=== PATIENT | male | born 1955 | race Caucasian/White ===

== ENCOUNTER 2017-03-15 19:43 | Emergency (ER) | payer OTHER ==
[~2017-03-15] VITALS: Ht 185.4 cm; Wt 108.9 kg
[~2017-03-15 19:43] MED LIST: ADALAT10 MG PO; ATORVASTATIN CA40 M1 PO; BACTRIM DS 8001 TA1 PO; BAYER ASPIRIN C81 MG PO; BENADRYL50 MG PO; CEPHALEXIN500 M1 PO; CLINDAMYCIN150 MG PO; COZAAR50 M1 PO; CRESTOR10 MG PO; DOXYCYCLINE100 M2 PO; EPA-CON500 MG PO; KEFLEX500 MG PO; Lopressor25 MG PO; NEXIUM20 MG PO; PLAVIX75 MG PO; PREDNICOT20 MG PO; VITAMIN D-32000 UNI1 PO
[2017-03-15] MEDS ORDERED: BENADRYL ALLERG25 M5 PO (22:16)
[2017-03-15] MEDS ORDERED: ZANTAC 150150 MG PO (22:16)
[2017-03-15] MEDS ORDERED: MEDROL DOSEPAK4 MG PO (22:16)
== END 2017-03-15 22:20 | disposition home or self-care (01) ==
LOC: ED 19:43
DX: T63.441A Toxic effect of venom of bees, accidental (unintentional), initial encounter (principal); F17.200 Nicotine dependence, unspecified, uncomplicated; Y92.9 Unspecified place or not applicable; Z79.82 Long term (current) use of aspirin; Z79.899 Other long term (current) drug therapy

== ENCOUNTER 2018-01-11 18:17 | Emergency (ER) | payer OTHER ==
[~2018-01-11] VITALS: Ht 185.4 cm; Wt 113.4 kg
[~2018-01-11 18:17] MED LIST changes: +BENADRYL ALLERG25 M5 PO; +MEDROL DOSEPAK4 MG PO; +ZANTAC 150150 MG PO
[2018-01-11] MEDS ORDERED: PANTOPRAZOLE SO20 MG PO (18:27)
[2018-01-11] MEDS ORDERED: CEPHALEXIN500 M1 PO (18:34)
== END 2018-01-11 21:25 | disposition home or self-care (01) ==
LOC: ED 18:17
DX: L03.116 Cellulitis of left lower limb (principal); Z98.890 Other specified postprocedural states; Z96.651 Presence of right artificial knee joint; Z79.899 Other long term (current) drug therapy; Z79.82 Long term (current) use of aspirin; Z91.030 Bee allergy status

== ENCOUNTER 2018-09-03 19:14 | Emergency (ER) | payer OTHER ==
[~2018-09-03] VITALS: Ht 187.9 cm; Wt 112.5 kg
[~2018-09-03 19:14] MED LIST changes: +PANTOPRAZOLE SO20 MG PO
[2018-09-03] MEDS ORDERED: SEPTDS PO (20:51)
== END 2018-09-03 20:38 | disposition home or self-care (01) ==
LOC: ED 19:14
DX: L03.116 Cellulitis of left lower limb (principal); I73.9 Peripheral vascular disease, unspecified; I10 Essential (primary) hypertension; F17.200 Nicotine dependence, unspecified, uncomplicated; Z91.030 Bee allergy status; Z79.2 Long term (current) use of antibiotics; Z79.82 Long term (current) use of aspirin; Z79.899 Other long term (current) drug therapy

== ENCOUNTER 2019-08-20 18:40 | Emergency (ER) | payer OTHER ==
[~2019-08-20] VITALS: Ht 185.4 cm; Wt 108.9 kg
[~2019-08-20 18:40] MED LIST changes: +PREDNISONE50 MG PO; +SEPTDS PO; +ZITHROMAX250 MG PO
[2019-08-20 19:36] LABS: BASO # 0.1 10*3/uL (0.0-0.1); BASO % 0.6 % (0.0-1.0); EOS # 0.1 10*3/uL (0.0-0.4); EOS % 1.3 % (1.0-4.0); HEMATOCRIT 43.6 % (42.0-52.0); HEMOGLOBIN 14.2 g/dl (14.0-18.0); LYMPH # 1.7 10*3/uL (1.3-4.4); MEAN CELL VOLUME 99.3 fl (80.0-94.0); MEAN CORPUSCULAR HGB 32.3 pg (27.0-31.0); MEAN CORPUSCULAR HGB CONC 32.6 g/dl (33.0-37.0); MEAN PLATELET VOLUME 9.8 fl (9.6-12.3); MONO # 1.1 10*3/uL (0.1-1.0); MONO % 13.1 % (3.0-9.0); NEUT # 5.7 10*3/uL (2.3-7.9); NEUT % 65.7 % (47.0-73.0); PLATELET COUNT AUTOMATED 218 10*3/uL (130-400); RED BLOOD COUNT 4.39 10*6/uL (4.50-5.90); RED CELL DISTRI WIDTH 12.7 % (0-14.5); WHITE BLOOD COUNT 8.7 10*3/uL (4.8-10.8)
[2019-08-20 19:53] LABS: ALBUMIN 3.3 gm/dl (3.1-4.5); ALKALINE PHOSPHATASE 40 U/L (45-117); BUN 17 mg/dl (7-24); CHLORIDE 105 mmol/L (98-107); CREATININE 0.99 mg/dL (0.70-1.30); POTASSIUM 4.3 mmol/L (3.5-5.1); SGOT/AST 17 IU/L (3-35); SGPT/ALT 26 U/L (12-78); SODIUM 137 mmol/L (136-145); TOTAL PROTEIN 6.9 gm/dL (6.4-8.2)
[2019-08-20 20:04] LABS: BILIRUBIN NEGATIVE (NEGATIVE); BLOOD 1+ (NEGATIVE); CLARITY CLEAR (CLEAR); COLOR YELLOW (YELLOW); GLUCOSE NEGATIVE (NEGATIVE); KETONE NEGATIVE (NEGATIVE); LEUKO ESTERASE 1+ (NEGATIVE); NITRITE POSITIVE (NEGATIVE); UROBILINOGEN 0.2 E.U./dl (0.2-1.0)
[2019-08-20 20:12] LABS: BACTERIA 4+; EPITHELIAL CELLS 0-2; RBC 0-2 rbc/hpf (0-2); WBC 31-40 wbc/hpf (0-5)
[2019-08-20] MEDS ORDERED: LEVAQUIN750 M1 PO (21:15)
== END 2019-08-20 21:20 | disposition home or self-care (01) ==
LOC: ED 18:40
PROVIDERS: Physician Assistant
DX: N39.0 Urinary tract infection, site not specified (principal); I10 Essential (primary) hypertension; E78.5 Hyperlipidemia, unspecified; K21.9 Gastro-esophageal reflux disease without esophagitis; I25.10 Atherosclerotic heart disease of native coronary artery without angina pectoris; Z91.030 Bee allergy status; Z79.899 Other long term (current) drug therapy; Z79.82 Long term (current) use of aspirin

== ENCOUNTER → 2020-09-11 | Outpatient (CLI) | payer OTHER ==
[~2020-09-11] MED LIST changes: +LEVAQUIN750 M1 PO
== END | disposition home or self-care (01) ==
LOC: COVID19 13:40
PROVIDERS: ATTEND Internal Medicine
DX: R05 Cough (principal); Z20.828 Contact with and (suspected) exposure to other viral communicable diseases

== ENCOUNTER 2021-08-26 18:21 | Emergency (ER) | payer OTHER ==
[~2021-08-26] VITALS: Ht 177.8 cm; Wt 113.4 kg
== END 2021-08-26 21:31 ==
LOC: ED 18:21
DX: I46.9 Cardiac arrest, cause unspecified (principal); Z79.899 Other long term (current) drug therapy